=== PATIENT | female | born 1960 | race Caucasian/White ===

== ENCOUNTER 2018-10-15 21:59 | Emergency (ER) | payer MEDICAID ==
[~2018-10-15] VITALS: Ht 167.6 cm; Wt 81.6 kg
[2018-10-15 22:56] VITALS: BP 186/117
--- NOTE | 2018-10-15 23:15 | NUR ---
BILAT 20/25. LEFT 20/20 CORRECTED. RIGHT 20/40 UNCORRECTED.
[2018-10-15] MEDS ORDERED: TETRACAINE HCL/PF 0.5% UD 2 ML BOTTLE ONE (23:26)
[2018-10-15] MEDS ORDERED: FLUORESCEIN SODIUM OPHTH 1 EA STRIP ONE (23:26)
[2018-10-15] MEDS ORDERED: FLUORESCEIN SODIUM OPHTH 1 EA STRIP OP ONE (23:30)
[2018-10-15] MEDS ORDERED: TETRACAINE HCL/PF 0.5% UD 2 ML BOTTLE RIGHTEYE ONE (23:30)
--- NOTE | 2018-10-15 23:38 | NUR ---
REPORT REC'D FROM BECKY PAYTON FOR [facility].
== END 2018-10-16 00:15 | disposition home or self-care (01) ==
LOC: ER 22:03
DX: S05.01XA Injury of conjunctiva and corneal abrasion without foreign body, right eye, initial encounter (principal); I10 Essential (primary) hypertension; J45.909 Unspecified asthma, uncomplicated; Z98.890 Other specified postprocedural states; X58.XXXA Exposure to other specified factors, initial encounter; Y93.89 Activity, other specified; Y92.89 Other specified places as the place of occurrence of the external cause; Y99.8 Other external cause status
CPT/HCPCS: 99283; J7030